=== PATIENT | male | born 1985 | race Caucasian/White ===

== ENCOUNTER 2018-03-14 09:47 | Emergency (ER) | payer MEDICAID ==
[2018-03-14 09:51] VITALS: BP 129/82
--- NOTE | 2018-03-14 10:04 | EDPHY ---
H & P Stated Complaint: right knee pain/swelling starting two nights ago, no trauma Time Seen by Provider: 03/14/18 10:01 HPI/ROS: HPI: This is a 33-year-old male who presents with Chief Complaint: right knee pain/swelling starting two nights ago, no trauma Location: Right knee Quality: Pain and swelling Duration: 2 days Signs and Symptoms: No bleeding, no radiation, no numbness, no weakness, no tingling, no incontinence, no decreased range of motion, + swelling, + pain, no fever Timing: Gradual onset Severity: 10/06 Context: Patient reports that he recently started skateboarding again and believes that this may have caused his injury as he is complaining of right knee pain and swelling. He reports that 2 days ago he felt like his "knee cap slipped out of place and then went back in." Patient reports that he has mild swelling. Denies any decreased range of motion radiation, weakness, paresthesias. He has not tried any [id number] pain medications or applied ice. Denies any locking or giving out symptoms. Modifying Factors: None Comment: ROS: A comprehensive 10 system review of systems is otherwise negative aside from elements mentioned in the history of present illness. MEDICAL/SURGICAL/SOCIAL HISTORY: Medical history: slipped disc, ortho hx, ETOH abuse, stomach ulcer Surgical history: Denies Social history: Light smoker CONSTITUTIONAL: Polite and cooperative adult white male, awake and alert, no obvious distress HEENT: Atraumatic and normocephalic. NECK: supple EXTREMITIES: 2/2 pulses, strength 5/5, right KNEE: Mild prepatellar effusion, no medial and lateral joint line tenderness, full extension to 180, flexion to 120. Pain with valgus exam. No pain with varus exam. No pain with anterior drawer or posterior drawer test. 2+ hypermobility of patella on the right as well as on the left. DIP/PIP/MCP flexion/extension intact with good light touch sensation. no deformities, no clubbing, no cyanosis or edema. NEUROLOGICAL: no focal neuro deficits. GCS 15. Light touch sensation intact. SKIN: Warm and dry, no erythema. no rash. Good capillary refill. Source: Patient Exam Limitations: No limitations - Personal History Current Tetanus/Diphtheria Vaccine: Unsure Current Tetanus Diphtheria and Acellular Pertussis (TDAP): Unsure Tetanus Vaccine Date: 2005 - Medical/Surgical History Hx Asthma: Yes Hx Chronic Respiratory Disease: No Hx Diabetes: No Hx Cardiac Disease: No Hx Renal Disease: No Hx Cirrhosis: No Hx Alcoholism: Yes Hx HIV/AIDS: No Hx Splenectomy or Spleen Trauma: No Other PMH: slipped disc, ortho hx, ETOH abuse, stomach ulcer - Social History Smoking Status: Light smoker Constitutional: Initial Vital Signs Temperature (C) 36.7 C 03/14/18 09:49 Heart Rate 66 03/14/18 09:49 Respiratory Rate 18 03/14/18 09:49 Blood Pressure 129/82 H 03/14/18 09:49 O2 Sat (%) 97 03/14/18 09:49 O2 Delivery Mode Room Air Allergies/Adverse Reactions: No Known Allergies Allergy (Verified 03/14/18 09:49) Home Medications: Medication Instructions Recorded NK [No Known Home Meds] 03/14/18 Medical Decision Making - Diagnostics Imaging Results: Imaging Impressions Knee X-Ray 03/14/18 10:00 Impression: Moderate suprapatellar joint effusion, with no acute osseous abnormality. Findings were discussed with Katrin Tucker PA-C at 10:36, on 03/14/2018. ED Course/Re-evaluation: Right knee x-ray obtained and shows no fracture, dislocation, degenerative changes. + mild effusion small amount of effusion; no indication for aspiration Suspect MCL strain. Placed in knee immobilizer with orthopedic follow-up No signs of neurovascular compromise/tenting of skin/compartment syndrome/ extremities and joints examined above and below area of concern and are neurovascularly intact. This patient was seen under the supervision of my secondary supervising physician. I evaluated care for this patient independently. Discussed this patient with Dr. Shepherd. Differential Diagnosis: Knee injury while [] including but not limited to fracture, ACL injury, contusion, muscular strain, and meniscus injury. Departure - Departure Disposition: Home, Routine, Self-Care Clinical Impression: Sprain of MCL (medial collateral ligament) of knee Qualifiers: Encounter type: initial encounter Laterality: right Qualified Code(s): S83.411A - Sprain of medial collateral ligament of right knee, initial encounter Effusion of patella Qualifiers: Laterality: right Qualified Code(s): M25.461 - Effusion, right knee Condition: Good Instructions: Knee Sprain (ED), Knee Immobilizer (ED) Additional Instructions: Wear the knee immobilizer while out of bed until pain free and the swelling has completely resolved. Take Tylenol 650 mg every 4 hours and/or Ibuprofen 600 mg every 8 hours with food as needed for pain. Apply ice for 30 minutes at a time; 2-3 times per day for the next 1-2 days. Follow up with Orthopedics in 1-2 weeks if symptoms persist at which time they will evaluate and recommend with you if conservative management versus MRI imaging is indicated. Referrals: Pavan Jacobsen MD [Medical Doctor] - As per Instructions
== END 2018-03-14 10:26 | disposition home or self-care (01) ==
DX: S83.411A Sprain of medial collateral ligament of right knee, initial encounter (principal); M25.461 Effusion, right knee; X50.0XXA Overexertion from strenuous movement or load, initial encounter; Y93.51 Activity, roller skating (inline) and skateboarding
CPT/HCPCS: L1830

== ENCOUNTER 2018-08-23 18:24 | Emergency (ER) | payer MEDICAID ==
--- NOTE | 2018-08-23 19:24 | EDPHY ---
H & P Stated Complaint: hx cervical fusion/? disk slipped r sided numbness/prob breathingx 2wk Time Seen by Provider: 08/23/18 19:23 HPI/ROS: HPI: This is a 33-year-old male who presents with Chief Complaint: hx cervical fusion/? disk slipped r sided numbness/prob breathingx 2wk Location: Neck Quality: Pain Duration: 2 weeks Signs and Symptoms: No bleeding, + right radiation, + right-sided numbness, no weakness, no tingling, no incontinence, no decreased range of motion, no swelling, + posterior neck pain, no fever Timing: Acute on chronic Severity: Moderate to severe Context: Patient has a history of neck pain off and on for the last 10-15 years. In 2016 he had an MRI that showed herniated discs at C6-C7 E centric to the right side which caused some cord compression and nerve root compression. He tried physical therapy injections, pain medications without any help. He underwent diskectomy and fusion at C6-C7 by Dr. Ambrosio. Reports that he broke up with his girlfriend 2 weeks ago and has been sleeping on the couch. Since that time he has noted right posterior neck pain with radiculopathy down into his right arm and hands of with associated right-sided numbness. He reports he has full range of motion. Denies headache, fevers, vision changes, dizziness, nausea. He reports the pain was so severe that he has had breathing problems the last 2 weeks. Denies cough, shortness of breath, palpitations, lower extremity edema. Patient takes Suboxone. Modifying Factors: See above Comment: ROS: A comprehensive 10 system review of systems is otherwise negative aside from elements mentioned in the history of present illness. MEDICAL/SURGICAL/SOCIAL HISTORY: Medical history: slipped disc, ortho hx, ETOH abuse, stomach ulcer Surgical history: Denies Social history: current every day smoker CONSTITUTIONAL: Anxious, middle-aged white male, nontoxic in appearance, awake and alert, no obvious distress HEENT: Atraumatic and normocephalic. NECK: supple, no midline tenderness, flexion 45 degrees, extension 45 degrees, right and left lateral flexion 45 degrees. No meningismus. Cardiovascular: Normal S1/S2, tachycardia, regular rhythm, without murmur rub or gallop. PULMONARY/CHEST: Symmetrical and nontender. Clear to auscultation bilaterally. Good air movement. No accessory muscle usage. ABDOMEN: Soft, nondistended, nontender. EXTREMITIES: 2/2 pulses, strength 5/5, right SHOULDER: Arc test abduction to 180, abduction to 45, horizontal flexion 130, horizontal extension to 45, deltoid strength 5/5. No pain with Neer test/Reyna test (impingement). No Tenderness to palpation over AC joint. DIP/PIP/MCP flexion/extension intact with good light touch sensation. no deformities, no clubbing, no cyanosis or edema. NEUROLOGICAL: no focal neuro deficits. GCS 15. Light touch sensation intact. SKIN: Warm and dry, no erythema. no rash. Good capillary refill. Source: Patient Exam Limitations: No limitations - Personal History Current Tetanus Diphtheria and Acellular Pertussis (TDAP): Yes Tetanus Vaccine Date: 2005 - Medical/Surgical History Hx Asthma: Yes Hx Chronic Respiratory Disease: No Hx Diabetes: No Hx Cardiac Disease: No Hx Renal Disease: No Hx Cirrhosis: No Hx Alcoholism: Yes Hx HIV/AIDS: No Hx Splenectomy or Spleen Trauma: No Other PMH: slipped disc, ortho hx, ETOH abuse, stomach ulcer - Social History Smoking Status: Light smoker Constitutional: Initial Vital Signs Temperature (C) 36.6 C 08/23/18 18:30 Heart Rate 111 H 08/23/18 18:30 Respiratory Rate 17 08/23/18 18:30 Blood Pressure 156/93 H 08/23/18 18:30 O2 Sat (%) 92 08/23/18 18:30 O2 Delivery Mode Room Air Allergies/Adverse Reactions: No Known Allergies Allergy (Verified 08/23/18 18:29) Home Medications: Medication Instructions Recorded Cyclobenzaprine [Flexeril 10 MG 10 mg PO TID PRN #15 tab 08/23/18 (*)] Lidocaine [Lidoderm] 1 each TP Q12 PRN #6 adh..patch 08/23/18 Suboxone 8 mg-2 mg SL Film 08/23/18 Medical Decision Making - Diagnostics Imaging Results: Imaging Impressions Cervical Spine MRI 08/23/18 19:35 Impression: Technically somewhat limited study due to cervical spinal hardware as well as patient motion. No definite significant disk herniation or cord compression is identified. Results called and discussed with BRISEYDA Palomares, on August 23, 2018 at 2142. ED Course/Re-evaluation: Vital signs reviewed and show mild tachycardia. No neurological deficits. MRI cervical spine ordered 2148: Called by Dr. Weber who reports that MRI cervical spine shows no acute cervical process. No significant cord compression, no significant disc herniation, no significant stenosis. Appears to be musculoskeletal in nature Lidoderm patch and Flexeril given as well as script for same. No signs of neurovascular compromise/tenting of skin/compartment syndrome/ extremities and joints examined above and below area of concern and are neurovascularly intact/cauda equina syndrome. This patient was seen under the supervision of my secondary supervising physician. I evaluated care for this patient with attending. Discussed this patient with Dr. Cormier. Differential Diagnosis: Neck pain/shoulder pain differential diagnosis includes but is not limited to clavicle fracture, contusion, AC joint separation, rotator cuff injury, labral tear, humeral head fracture, sprain, scapula fracture. - Data Points Medications Given: Discontinued Medications Cyclobenzaprine HCl (Flexeril) 10 mg PO EDNOW ONE Stop: 08/23/18 21:47 Last Admin: 08/23/18 21:56 Dose: 10 mg Miscellaneous Medication (Icy Hot Lidocaine/Menthol 4%/1% Patch) 1 patch TD EDNOW ONE Stop: 08/23/18 21:47 Last Admin: 08/23/18 21:56 Dose: 1 patch Departure - Departure Disposition: Home, Routine, Self-Care Clinical Impression: History of cervical discectomy Cervical muscle strain Qualifiers: Encounter type: initial encounter Qualified Code(s): S16.1XXA - Strain of muscle, fascia and tendon at neck level, initial encounter Condition: Good Instructions: Cervical Strain (ED) Additional Instructions: Apply Lidoderm patch every 12 hr as needed for pain. Take Flexeril every 8 hr as needed for muscle spasms. Follow-up with Neurosurgery in the next 1-2 weeks if symptoms do not resolve. Referrals: Mc Ambrosio MD [Medical Doctor] - As per Instructions Stand Alone Forms: Work Excuse Prescriptions: Cyclobenzaprine [Flexeril 10 MG (*)] 10 mg PO TID PRN #15 tab PRN Reason: Spasms Lidocaine [Lidoderm] 1 each TP Q12 PRN #6 adh..patch PRN Reason: Pain, Moderate
[2018-08-23] MEDS ORDERED: LIDOCAINE 4%/MENTHOL 1% PATCH TD ONE (21:46)
[2018-08-23] MEDS ORDERED: CYCLOBENZAPRINE 10 MG TAB PO ONE (21:46)
[2018-08-23 22:00] VITALS: BP 143/87
[2018-08-24] MEDS ORDERED: PATCH REMOVAL 1 EA PATCH TD SCH (21:00)
== END 2018-08-23 22:00 | disposition home or self-care (01) ==
DX: S16.1XXA Strain of muscle, fascia and tendon at neck level, initial encounter (principal)

== ENCOUNTER 2018-09-08 15:00 | Emergency (ER) | payer MEDICAID ==
[2018-09-08] MEDS ORDERED: LORazepam 2 MG/ML INJ IVP ONE (16:00)
[2018-09-08] MEDS ORDERED: NS 500 ML IV ONE (16:00)
[2018-09-08] MEDS ORDERED: ONDANSETRON 4 MG/2 ML VIAL ONE (16:08)
[2018-09-08] MEDS ORDERED: LORazepam 2 MG/ML INJ ONE (16:09)
[2018-09-08] MEDS ORDERED: ONDANSETRON 4 MG/2 ML VIAL IVP ONE (18:15)
[2018-09-08] MEDS ORDERED: NS 1,000 ML IV ONE (18:17)
--- NOTE | 2018-09-08 18:26 | EDPHY ---
H & P Stated Complaint: neck pain/ poss w/d - Personal History Tetanus Vaccine Date: 2005 - Medical/Surgical History Hx Asthma: Yes Hx Chronic Respiratory Disease: No Hx Diabetes: No Hx Cardiac Disease: No Hx Renal Disease: No Hx Cirrhosis: No Hx Alcoholism: Yes Hx HIV/AIDS: No Hx Splenectomy or Spleen Trauma: No Other PMH: slipped disc, ortho hx, ETOH abuse, opiate abuse stomach ulcer - Social History Smoking Status: Light smoker <Yelena Fletcher - Last Filed: 09/08/18 19:11> Source: Patient, Family Exam Limitations: Clinical condition, Intoxication - Personal History Current Tetanus/Diphtheria Vaccine: Yes - Family History Significant Family History: Other (Mother with MS) - Social History Alcohol Use: Heavy Drug Use: Other (on suboxone for hx of drug abuse) <Jason Waite - Last Filed: 09/10/18 17:50> Time Seen by Provider: 09/08/18 15:05 HPI/ROS: 33 yo male presents to the ER with acute on chronic neck pain. Patient reports having a cervical fusion of C6-[address] Ambrosio approx 4 years ago. Since that time, he has developed right arm and hand paresthesias and pain. He was seen in our ED approx 3 week ago for these symptoms and had an MRI showing disc bulge at 5-6 without herniation. He says he's been treating his pain with "18 drinks of alcohol a day". He has a hx of opioid and IV drug abuse and is on suboxone. He is not currently abusing IV drugs. He reports since this morning , he has developed atraumatic left hand numbness and weakness. He also reports vague right facial numbness, vision troubles and headaches and apparently his mother presented with similar symptoms when she was diagnosed with MS. He says he cannot get into Dr. Ambrosio's office b/c "they don't want to see me anymore". He has not reached out to a different neurosurgeon. He is anxious, tearful, admits to drinking this morning but feels tremulous. 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 No midline pain. Subjective numbness to right side of neck and face. Intact sensation to back of neck bilaterally. Cardiac: tachycardic, no murmurs Resp: Lungs clear bilaterally, no wheezes/rhonchi rales GI: Abdomen soft, no focal peritoneal findings, bowel sounds normal, no mass/ distension Neuro: Weakened type soldering machine tender strength 4/5 on left compared to right. Weak left arm strength to shoulder abduction against resistance. Intact sensation over deltoids. Tremulous in both arms. Trapezius DTR's 2+ bilat. Skin: No rash Musculoskeletal: Limited ROM of neck due to pain, Normal ROM of back and lumbar spine without midline pain. No saddle anesthesia or bowel/bladder incontience. (Jason Waite) Constitutional: Initial Vital Signs Temperature (C) 36.6 C 09/08/18 18:10 Heart Rate 134 H 09/08/18 18:10 Respiratory Rate 22 H 09/08/18 18:10 Blood Pressure 118/95 H 09/08/18 18:10 O2 Sat (%) 99 09/08/18 18:10 O2 Delivery Mode Room Air Allergies/Adverse Reactions: No Known Allergies Allergy (Verified 08/23/18 18:29) Home Medications: Medication Instructions Recorded Cyclobenzaprine [Flexeril 10 MG 10 mg PO TID PRN #15 tab 08/23/18 (*)] Lidocaine [Lidoderm] 1 each TP Q12 PRN #6 adh..patch 08/23/18 Suboxone 8 mg-2 mg SL Film 08/23/18 methylPREDNISolone [Medrol Dose 4 mg PO DAILY #1 each 09/08/18 Neftali] Medical Decision Making <Yelena Fletcher - Last Filed: 09/08/18 19:11> <Jason Waite - Last Filed: 09/10/18 17:50> - Diagnostics EKG Interpretation: See Dr. Fletcher EKG interpretation (Jason Waite) Imaging Results: MRI results pending at time of sign out to Dr. Fletcher (Jason Waite) ED Course/Re-evaluation: 33 yo male presents with acute on chronic neck pain, chronic right arm/hand paresthesias and pain with reports of new atraumatic left hand paresthesias and left arm weakness this morning while watching TV. Patient has been treating symptoms with heavy alcohol use over the last several months. He is anxious, tachycardic, tremulous and appears to be in mild withdrawl. He has mild neuro deficits to the left arm on exam, see PE notes. NO midline neck pain, thoracic or lumbar pain. No bowel/bladder incontinence, saddle anesthesia, fever or hx of current IV drug abuse or recent spinal cord procedure or IGOR. Given patient' s coinciding facial paresthesias, subjective vision changes, and headaches with FH of MS in his MOC, MRI C-spine and brain were ordered after consultation with Dr. Fletcher. Patient was signed out to Dr. Fletcher at 1700 pending lab and MRI results. EKG shows NSR, with reported QTc of 530. Will withhold further zofran doses. Patient was stable at time of signout. (Jason Waite) Differential Diagnosis: Differential includes but not limited to cauda equina, epidural abscess, meningitis, herniated disc, fracture, MS, electrolyte imbalance, metabolic disturbance, dehydration, intoxication (Jason Waite) Other Provider: Assumed care of this patient at 530 from Jason Waite. At this time we are awaiting the MRI results. Patient's MRI of the brain was negative for any acute findings. Patient's MRI of the cervical spine demonstrates an acute left-sided disc herniation at C5-C6. Patient's course was discussed with Dr. Guillermo Pichardo, neurosurgery. He reviewed the MRI. At this time suggest conservative therapy only. Patient was discharged with a Medrol Dosepak, instructions to use ibuprofen on a regular basis for pain, lidocaine patch, and follow up with Neurosurgery. Strongly encouraged not drink alcohol in excessive quantities. (Yelena Fletcher) Care Turn Over: Signed out to Dr. Fletcher at 1700 (Jason Waite) - Data Points Laboratory Results: Laboratory Results 09/08/18 16:24 09/08/18 16:24 Medications Given: Discontinued Medications Chlordiazepoxide (Librium 25 Mg Prepack#6) 1 btl TAKEHOME EDNOW ONE Stop: 09/08/18 18:55 Last Admin: 09/08/18 19:27 Dose: 1 btl Chlordiazepoxide HCl (Librium) 25 mg PO EDNOW ONE Stop: 09/08/18 18:55 Last Admin: 09/08/18 19:26 Dose: 25 mg Dexamethasone (Decadron Injection) 10 mg IVP EDNOW ONE Stop: 09/08/18 18:28 Last Admin: 09/08/18 18:38 Dose: 10 mg Gabapentin (Neurontin) 600 mg PO EDNOW ONE Stop: 09/08/18 18:47 Last Admin: 09/08/18 18:58 Dose: 600 mg Sodium Chloride (Ns) 500 mls @ 0 mls/hr IV EDNOW ONE; Wide Open PRN Reason: Protocol Stop: 09/08/18 16:01 Last Admin: 09/08/18 18:17 Dose: Not Given Sodium Chloride (Ns) 1,000 mls @ 0 mls/hr IV ONCE ONE; Wide Open PRN Reason: Protocol Stop: 09/08/18 18:18 Last Admin: 09/08/18 16:10 Dose: 1,000 mls Ketorolac Tromethamine (Toradol) 15 mg IVP EDNOW ONE Stop: 09/08/18 18:47 Last Admin: 09/08/18 18:57 Dose: 15 mg Lorazepam (Ativan Injection) 1 mg IVP EDNOW ONE Stop: 09/08/18 16:01 Last Admin: 09/08/18 16:10 Dose: 1 mg Miscellaneous Information (Patch Removal) 1 ea TD DAILY21 PIYUSH Stop: 03/07/19 20:59 Last Admin: 09/08/18 19:34 Dose: 1 ea Miscellaneous Medication (Icy Hot Lidocaine/Menthol 4%/1% Patch) 1 patch TD EDNOW ONE Stop: 09/08/18 18:47 Last Admin: 09/08/18 18:57 Dose: 1 patch Ondansetron HCl (Zofran) 4 mg IVP EDNOW ONE Stop: 09/08/18 18:16 Last Admin: 09/08/18 16:10 Dose: 4 mg Departure <Yelena Fletcher M - Last Filed: 09/08/18 19:11> <Jason Waite - Last Filed: 09/10/18 17:50> - Departure Disposition: Home, Routine, Self-Care Clinical Impression: Neck pain Condition: Good Instructions: Chlordiazepoxide/Clidinium (By mouth), Alcohol Withdrawal (ED), Acute Neck Pain (ED) Additional Instructions: Take Medrol Dosepak as prescribed. Take ibuprofen, 600mg every 6-8 hours with food as needed for pain. You may also apply lidocaine patches as directed as needed for pain. Follow up with your primary care provider in the next week. Follow up with neurosurgery as directed for your left-sided cervical disc herniation. We have referred you to our neurosurgeon concrete spreader, contact information below. Return to the emergency department for severe pain, numbness, weakness, tingling , headache, difficulty walking or other complaints. You may use Librium as needed to treat your alcohol withdrawal symptoms. Please do not use alcohol as a pain medication. Referrals: Grayson Pichardo MD [Medical Doctor] - As per Instructions Prescriptions: methylPREDNISolone [Medrol Dose Neftali] 4 mg PO DAILY #1 each
[2018-09-08] MEDS ORDERED: DEXAMETHASONE 10 MG/ML VIAL IVP ONE (18:27)
[2018-09-08 18:30] VITALS: BP 125/87
[2018-09-08] MEDS ORDERED: GABAPENTIN 300 MG CAP PO ONE (18:46)
[2018-09-08] MEDS ORDERED: LIDOCAINE 4%/MENTHOL 1% PATCH TD ONE (18:46)
[2018-09-08] MEDS ORDERED: KETOROLAC 15 MG/1 ML SDV IVP ONE (18:46)
[2018-09-08] MEDS ORDERED: CHLORDIAZEPOXIDE 25MG PREPK#6 BTL TAKEHOME ONE (18:54)
[2018-09-08] MEDS ORDERED: chlordiazePOXIDE 25 MG CAP PO ONE (18:54)
[2018-09-08 20:05] LABS: PLATELET COUNT 186 10^3/uL (150-400)
[2018-09-08] MEDS ORDERED: PATCH REMOVAL 1 EA PATCH TD SCH (21:00)
== END 2018-09-08 19:34 | disposition home or self-care (01) ==
DX: M50.222 Other cervical disc displacement at C5-C6 level (principal); F10.99 Alcohol use, unspecified with unspecified alcohol-induced disorder; Z98.1 Arthrodesis status
CPT/HCPCS: 70551-PN; 96374; J1100; J1885; J2060; J2405

== ENCOUNTER 2018-11-14 17:49 | Emergency (ER) | payer MEDICAID ==
--- NOTE | 2018-11-14 18:09 | EDPHY ---
H & P Stated Complaint: + etoh, mechanical fall, then ran into a tree, unkloc Time Seen by Provider: 11/14/18 17:52 HPI/ROS: CHIEF COMPLAINT: Intoxicated, fall, facial trauma, neck pain HISTORY OF PRESENT ILLNESS: Patient is brought in by paramedics after he fell while intoxicated. The patient fell forward striking his lip. The patient does have a history of chronic neck pain secondary to a cervical disc herniation. The patient denies any acute numbness or weakness but does report acute pain in his neck. It is primarily in the right paracervical musculature. The patient denies acute headache he is uncertain whether he lost consciousness. Patient does report to heavy alcohol use today. He denies any additional traumatic complaints. The patient did sustain a laceration to his upper inner lip. REVIEW OF SYSTEMS: A comprehensive 10 point review of systems is otherwise negative aside from elements mentioned in the history of present illness. Source: Patient - Personal History Current Tetanus Diphtheria and Acellular Pertussis (TDAP): Yes Tetanus Vaccine Date: 2005 - Medical/Surgical History Hx Asthma: Yes Hx Chronic Respiratory Disease: No Hx Diabetes: No Hx Cardiac Disease: No Hx Renal Disease: No Hx Cirrhosis: No Hx Alcoholism: Yes Hx HIV/AIDS: No Hx Splenectomy or Spleen Trauma: No Other PMH: slipped disc, ortho hx, ETOH abuse, opiate abuse stomach ulcer - Social History Smoking Status: Current every day smoker - Physical Exam Exam: General Appearance: Alert, no distress Head: Superficial facial abrasions Eyes: Pupils equal, round, reactive ENT, Mouth: No hemotympanum, nonsuturable laceration noted to the upper inner lip Neck: In cervical collar, tenderness to palpation appreciated in the lateral cervical spine in the mid cervical region Respiratory: No chest wall tender, no subcutaneous air, lungs clear bilaterally Cardiovascular: Regular rate and rhythm Abdomen: Abdomen is soft and nontender, pelvis stable Skin: No lacerations, No abrasion Back: No midline T/L/S pain Extremities: Nontender, full range of motion Neurological: A&Ox3, normal motor function, normal sensory exam Constitutional: Initial Vital Signs Temperature (C) 37.2 C 11/14/18 17:54 Heart Rate 105 H 11/14/18 17:54 Respiratory Rate 18 11/14/18 17:54 Blood Pressure 148/102 H 11/14/18 17:54 O2 Sat (%) 88 L 11/14/18 17:54 O2 Delivery Mode Room Air O2 (L/minute) 2 Allergies/Adverse Reactions: No Known Allergies Allergy (Verified 08/23/18 18:29) Home Medications: Medication Instructions Recorded Suboxone 8 mg-2 mg SL Film 08/23/18 Medical Decision Making - Diagnostics Imaging Results: Imaging Impressions Cervical Spine CT 11/14/18 18:07 Impression: 1. No acute fracture or soft tissue swelling. 2. Well seated ACDF at C6-C7. 3. If the patient has persistent pain or neurologic deficits, consider cervical spine MRI. Findings discussed with emergency department physician, Antwan Rojo MD on November 14, [address] at [address] 11/14/18 18:07 Impression: 1. No acute fracture or evidence of acute intracranial injury. 2. Right maxillary sinus disease, unchanged. Findings discussed with emergency department physician, Antwan Rojo MD on November 14, 2018 at 1854 hours. ED Course/Re-evaluation: The patient presents the emergency department intoxicated having sustained a mechanical fall. The patient has a nonsuturable lip laceration. The patient did complain of neck pain which is a chronic condition for the patient. The patient does appear to be intoxicated. Secondary to his intoxication he was taken for a CT scan of the head and cervical spine which demonstrate no evidence of an acute injury. I re-evaluated the patient 7:15 p.m.. He is continuing to sober in the emergency department. When the patient is ambulatory will be discharged to the custody of police who have placed him on a alcohol hold to be transferred to the detox center. The patient will be given a prepack of Librium to go to [facility] with. 7:30 p.m.: The patient is ambulatory without assistance. [place] [employer] has been notified. Differential Diagnosis: Differential diagnosis considered includes intracranial hemorrhage, skull fracture, cervical spine injury, intraoral trauma Departure - Departure Disposition: Home, Routine, Self-Care Clinical Impression: Alcoholic intoxication, Chronic neck pain, Lip laceration Condition: Good Instructions: Chlordiazepoxide (By mouth), Alcohol Intoxication (ED) Additional Instructions: 1. I recommend abstaining from alcohol. 2. You have a nonsuturable laceration on your inner upper lip which should heal without complication. 3. 3. I do recommend working with a resources at the [facility] for further assistance with your alcohol dependence. Referrals: [facility] [Outside] - As per Instructions
[2018-11-14] MEDS ORDERED: CHLORDIAZEPOXIDE 25MG PREPK#6 BTL TAKEHOME ONE (19:27)
[2018-11-14 19:46] VITALS: BP 129/79
== END 2018-11-14 20:16 | disposition home or self-care (01) ==
LOC: EDUNIT#
DX: F10.920 Alcohol use, unspecified with intoxication, uncomplicated (principal); S01.511A Laceration without foreign body of lip, initial encounter; W22.09XA Striking against other stationary object, initial encounter; G89.29 Other chronic pain; J45.909 Unspecified asthma, uncomplicated; F17.200 Nicotine dependence, unspecified, uncomplicated; Z98.1 Arthrodesis status